=== PATIENT | female | born 1935 | race Caucasian/White ===

== ENCOUNTER 2018-09-22 16:46 | Inpatient (IN) ==
--- NOTE | 2018-09-22 17:13 | Emergency Department Note ---
ED Disposition Clinical Impression: Dehydration, Nausea vomiting and diarrhea, Contusion of knee with skin surface intact, Poor social situation, Acute renal insufficiency Disposition: Still a Patient Condition on Discharge: Fair Instructions: DI for Diarrhea and Traveler's Diarrhea -- Adult, DI for Diarrhea and Traveler's Diarrhea -- Child, DI for Nausea -- Adult, DI for Nausea -- Child Referrals: Domonique Burkett MD [Primary Care Provider] - - Critical Care Critical Care Time: No Attestation: On 09/22/18, the high probability of a clinically significant, sudden or life threatening deterioration of the following system(s) required my full and direct attention, intervention and personal management. The time I documented below is in addition to time spent performing reported procedures but includes the following listed in this critical care notation. Medical Decision Making - Nish Inquiry Pt receiving controlled substance: No Nish was queried for this patient: No Vital Signs: 09/22/18 16:57 09/22/18 18:16 Temperature 97.5 F L Temperature Source Oral Pulse Rate [Left Radial] 121 H 82 Respiratory Rate 26 H 18 Blood Pressure [Right Arm] 150/66 H 101/50 L Blood Pressure Mean [Right Arm] 94 67 Blood Pressure Source [Right Arm] Automatic Cuff Blood Pressure Position [Right Arm] Sitting Supine 02 Sat by Pulse Oximetry 97 97 Oxygen Delivery Method Room Air Room Air - Lab Data Lab Results 09/22/18 18:02: WBC 18.5 H, RBC 3.90 L, Hgb 11.6 L, Hct 37.6, MCV 96.4, MCH 29.8, MCHC 31.0 L, RDW 18.3 H, Plt Count 353, MPV 8.2, Neut % (Auto) 90.8 H, Lymph % (Auto) 6.3 L, Power % (Auto) 2.4, Eos % (Auto) 0.4, Baso % (Auto) 0.1, Neut # (Auto) 16.8 H, Lymph # (Auto) 1.2, Power # (Auto) 0.4, Eos # (Auto) 0.1, Baso # (Auto) 0.0, Total Counted 100, Neutrophils % (Manual) 84 H, Band Neutrophils % 3.0, Lymphocytes % (Manual) 13, Platelet Estimate Normal, Anisocytosis 1+ 09/22/18 18:02: Sodium 138, Potassium 5.1, Chloride 101, Carbon Dioxide 23, Anion Gap 19.1 H, BUN 35 H, Creatinine 3.00 H, Estimated Creat Clear 23, Estimated GFR 15 L*, Est GFR ( Amer) 18 L*, Glucose 250 H, Calcium 8.9, Total Bilirubin 0.8, AST 10 L, ALT 14, Alkaline Phosphatase 33 L, Total Protein 6.3 L, Albumin 2.8 L, Globulin 3.5 H, Albumin/Globulin Ratio 0.8 L 09/22/18 18:02: Magnesium 1.8 Result diagrams: 09/22/18 18:02 09/22/18 18:02 Orders (Tests/Meds): ED MEDICATIONS Discontinued Medications Generic Name Dose Route Start Last Admin Trade Name Freq PRN Reason Stop Dose Admin Ondansetron HCl 4 mg 09/22/18 17:48 09/22/18 18:09 Zofran 4mg/2ml Vial IV 09/22/18 17:49 4 mg ONCE ONE Administration ORDERS Category Date Time Status Acute abdomen XR series [XR acute abdomen series] Stat Exams 09/22/18 17:06 Taken Diarrhea 23 Panel, PCR Stat Lab 09/22/18 17:02 Ordered ECG Request by /Nse Stat Y 09/22/18 17:06 Ordered - Radiology Data #1 Image(s): Chest, Abdomen Image Reviewed: Yes I reviewed the patient's radiology image Preliminary Findings: Abnormal CXR: No acute Abdomen: No acute - ECG Data Tracing #1 Normal sinus rhythm 95/min baseline artifact nonspecific ST segment and T wave changes ECG initial impression date: 09/22/18 ECG initial impression time: 17:30 Medical Decision Narrative: The patient remained hemodynamically neurologically stable. Her abdomen series with no acute findings but her white count was 18 and her creatinine was 3.0 I spoke with the patient was agreeable for admission. I called Dr. Kulkarni who agreed to admit the patient on behalf of Dr. Mohr for IV fluid therapy with diarrhea panel is pending, the choice of antibiotic will be decided in the course of her hospital stay. Nausea/Vomiting/Diarrhea HPI - General Chief complaint: Nausea/Vomiting/Diarrhea Stated complaint: Vomiting, diarrhea, passing out Time Seen by Provider: 09/22/18 17:00 Mode of Arrival: Ambulatory Source of Information: Patient Limitations: No Limitations Description of Symptoms (Recalled from ER Triage Doc. by RN): to ed per pvt car with c/o nausea, vomiting, diarrhea starting lastnight pt states "passed out twice" pt denies any abd pain fever. cptdomonique smiley - History of Present Illness HPI Narrative: 83 years old white female with history of atrial fibrillation. Today at 3 AM she developed diarrhea x6 followed by vomiting x2 with inability to keep liquids down. The patient is on diuretics and she started feeling dehydrated. She de nies having fever chills hematemesis coffee-ground emesis melanotic stool or bleeding per rectum. She denies having abdominal pain. She denies having chest pain shortness of breath or palpitations. She has a house cat but no chicken or farm animals. MD complaint: nausea, vomiting, diarrhea Onset (ago): hour(s) (15 hours agp) Description of Vomiting: watery Description of Diarrhea: water Associated Abdominal Pain: No Relieving factors: none Exacerbating factors: eating Associated symptoms: nausea/vomiting - Related Data Allergies Allergy/AdvReac Type Severity Reaction Status Date / Time No Known Allergies Allergy Verified 09/22/18 17:03 [facility] History - Hepatitis A Screen Drug use history?: No High risk sexual behaviors?: No History of sexually transmitted infection?: No Currently employed?: No Childcare worker?: No Do you have indoor plumbing?: Yes Do you have electricity?: Yes Attestation statement:: This patient has been screened for Hepatitis A risk factors. I have reviewed the patient's past medical history: Yes - Social History Alcohol Intake: never Occupational Status: other ROS Obtained: Yes All systems reviewed & no additional complaints Physical Exam - General General appearance: alert, in no apparent distress, obese, other (Poor hygiene and poorly groomed.) - Head Head exam: atraumatic, normocephalic, normal inspection - Eye Eye exam: Present: normal appearance, PERRL, EOMI - ENT ENT exam: Present: normal exam, normal oropharynx, mucous membranes moist, TM's normal bilaterally, normal external ear exam - Neck Neck exam: Present: normal inspection, full ROM, trachea midline. Absent: tenderness, meningismus, lymphadenopathy - Chest Chest inspection: Present: normal inspection, symmetric chest wall rise. Absent: tenderness - Respiratory Respiratory exam: Present: normal lung sounds bilaterally. Absent: respiratory distress, wheezes - Cardiovascular Cardiovascular exam: Present: regular rate, normal rhythm. Absent: JVD - Abdominal Exam Abdominal exam: Present: soft, diminished bowel sounds. Absent: distention, tenderness, guarding, rebound, rigidity, Jimenez's sign, tenderness at McBurney's Point - External exam: Present: normal external exam - Extremities Exam Extremities exam: Present: normal inspection, full ROM, normal capillary refill. Absent: calf tenderness - Back Exam Back exam: Present: normal inspection. Absent: tenderness, CVA tenderness (R), CVA tenderness (L) - Neurological Exam Neurological exam: Present: alert, oriented X3, CN II-XII intact, motor sensory deficit, reflexes normal - Psychiatric Psychiatric exam: Present: normal affect, normal mood - Skin Skin exam: Present: warm, dry, intact, normal color, other (Multiple contusions involving the lower extremities and onychomycosis) - Lymphatic Lymphatic Findings: no adenopathy
[2018-09-22 18:22] LABS: Basophils % 0.1 % (0.1-2.0); Eosinophils # 0.1 K/mm3 (0.0-0.4); Eosinophils % 0.4 % (0.1-12.0); Hematocrit 37.6 % (37.0-47.0); Hemoglobin 11.6 g/dL (12.2-16.2); Lymphocytes # 1.2 K/mm3 (0.7-4.5); Lymphocytes % 6.3 % (10-50); Mean Corpuscular Volume 96.4 fl (81-99); Mean Platelet Volume 8.2 fl (7.4-10.4); Monocytes # 0.4 K/mm3 (0.1-1.0); Monocytes % 2.4 % (1.7-9.3); Neutrophils # 16.8 K/mm3 (1.8-7.8); Neutrophils % 90.8 % (37.0-80.0); Platelet Count 353 K/mm3 (142-424); Red Cell Distribution Width 18.3 % (11.5-17.5); White Blood Count 18.5 K/mm3 (4.8-10.8)
[2018-09-22 18:31] LABS: Albumin Level 2.8 gm/dL (3.4-5.0); Albumin/Globulin Ratio 0.8 (1.1-1.8); Anion Gap 19.1 mEq/L (5-15); Bilirubin,Total 0.8 mg/dL (0.2-1.0); Calcium 8.9 mg/dL (8.5-10.1); Globulin 3.5 gm/dl (1.3-3.2); Total Protein,Serum 6.3 gm/dL (6.4-8.2)
[2018-09-22 18:38] LABS: Anisocytosis 1+; Lymphocytes % 13 % (10-50); Neutrophils % 84 % (42-76); Total Cells Counted 100
[2018-09-22 20:03] LABS: Microscopic, Urine URINE MICROSCOPIC (MICROSCOPIC)
[2018-09-22 20:06] LABS: Appearance,Urine CLOUDY (Clear); Blood, Urine Negative (Negative); Color,Urine DK YELLOW (Yellow); Glucose,Urine (UA) Negative (Negative); Ketones,Urine TRACE (Negative); Leukocyte Esterase,Urine Negative (Negative); Protein,Urine 1+ (Negative); Specific Gravity, Urine >= 1.030 (1.005-1.030); Urobilinogen,Urine 0.2 EU/dl (0.2)
[2018-09-22 20:10] LABS: Amorphous Sediment,Urine 2+ /lpf; Bilirubin,Urine Negative (Negative); Mucus,Urine 2+ /lpf
--- NOTE | 2018-09-23 07:03 | History & Physical Report ---
*Admission Date: 09/22/18 *Chief complaint: Diarrhea *History of present illness: 83-year-old female presented to the emergency department yesterday afternoon with complaints of "feeling sick". Patient reports early Sunday morning she was awoken from sleep with onset of diarrhea. She estimates she had at least 6 large-volume watery bowel movements and associated episodes of vomiting. She is unaware of any fevers. She reports that she passed out at least twice during the early onset of this illness. She ultimately made her way to the emergency department in the afternoon. On evaluation in the ER the patient appeared dehydrated, had a elevated white blood cell count and had acute kidney injury on her BMP. Decision was made to admit the patient for IV fluids and antiemetics. Patient has not had any episodes of vomiting or diarrhea since admission. She recalls her last meal being some grape tomatoes and cheddar cheese on crackers. [facility] History I have reviewed the patient's past medical history: Yes Medical History: Reports:: Atrial Fibrillation, Hypertension *Have you ever received a pneumonia vaccine?: No *Have you received a flu vaccine this season?: No - *Social History Smoking Status: Never smoker Alcohol Intake: never *Occupational Status:: other *Travel in the last 8 weeks: None - Psychiatric History Expresses thoughts of harming self/others: None Suicide Plan Description: No Plan Family Hx:: No significant family history Review of Systems - Review of Systems Review of systems:: pertinent systems reviewed and negative unless documented below Meds Home Medications Medication Instructions Recorded Confirmed Type Aspirin [Aspirin EC 325mg Tab] 325 mg PO DAILY 09/23/18 09/23/18 History Chlorthalidone 25 mg PO DAILY 09/23/18 09/23/18 History Ferrous Sulfate [Ferrous Sulfate 325 mg PO DAILY 09/23/18 09/23/18 History 325mg Tablet] Verapamil HCl [Verapamil ER] 120 mg PO HS 09/23/18 09/23/18 History Verapamil HCl [Verapamil ER] 240 mg PO DAILY 09/23/18 09/23/18 History Allergies Allergy/AdvReac Type Severity Reaction Status Date / Time No Known Allergies Allergy Verified 09/22/18 17:03 Exam Vital signs and Labs for Last 24 Hours: Temp Pulse Resp BP Pulse Ox 98.8 F 81 20 94/54 L 99 09/23/18 03:53 09/23/18 03:53 09/23/18 03:53 09/23/18 03:53 09/23/18 03:53 Laboratory Results - last 24 hr 09/22/18 18:02: WBC 18.5 H, RBC 3.90 L, Hgb 11.6 L, Hct 37.6, MCV 96.4, MCH 29.8, MCHC 31.0 L, RDW 18.3 H, Plt Count 353, MPV 8.2, Neut % (Auto) 90.8 H, Lymph % (Auto) 6.3 L, [place] % (Auto) 2.4, Eos % (Auto) 0.4, Baso % (Auto) 0.1, Neut # (Auto) 16.8 H, Lymph # (Auto) 1.2, [place] # (Auto) 0.4, Eos # (Auto) 0.1, Baso # (Auto) 0.0, Total Counted 100, Neutrophils % (Manual) 84 H, Band Neutrophils % 3.0, Lymphocytes % (Manual) 13, Platelet Estimate Normal, Anisocytosis 1+ 09/22/18 18:02: Sodium 138, Potassium 5.1, Chloride 101, Carbon Dioxide 23, Anion Gap 19.1 H, BUN 35 H, Creatinine 3.00 H, Estimated Creat Clear 23, Estimated GFR 15 L*, Est GFR ( Amer) 18 L*, Glucose 250 H, Calcium 8.9, Total Bilirubin 0.8, AST 10 L, ALT 14, Alkaline Phosphatase 33 L, Total Protein 6.3 L, Albumin 2.8 L, Globulin 3.5 H, Albumin/Globulin Ratio 0.8 L 09/22/18 18:02: Magnesium 1.8 09/22/18 19:58: Urine Color Dk yellow, Urine Appearance Cloudy, Urine pH 5.0, Ur Specific [place] >= 1.030, Urine Protein 1+, Urine Glucose (UA) Negative, Urine Ketones Trace, Urine Blood Negative, Urine Nitrate Negative, Urine Bilirubin Negative, Urine Urobilinogen 0.2, Ur Leukocyte Esterase Negative, Urine WBC 3-5, Ur Squamous Epith Cells 5-10, Amorphous Sediment 2+, Hyaline Casts 5-10, Urine Mucus 2+ 09/22/18 20:09: Lactate 2.3 H 09/22/18 23:50: Lactate 0.7 I & O for Last 24 hours: Intake & Output 09/20/18 09/21/18 09/22/18 09/23/18 11:59 11:59 11:59 11:59 Intake Total 1934 Balance 1934 Weight 199 lb 7 oz - Constitutional no acute distress - *Routine HEENT Exam Head: Present: normocephalic Eye: Present: EOMI, PERRL ENT: Present: mucous membranes moist - *Routine Neck Exam Present: supple - *Routine Respiratory Exam Present: CTA bilaterally - *Routine Cardiovascular Exam Present: murmur, irregularly irregular - *Routine Abdominal Exam Present: soft, normoactive bowel sounds. Absent: tenderness, distended, rebound - *Routine Extremities Exam Present: full ROM - *Routine Neurological Exam Present: alert, oriented X3, CN II-XII intact. Absent: sensory deficit, motor deficit Assessment and Plan (1) Acute kidney injury Current visit: Yes Status: Acute Category: Medical Code(s): N17.9 - Acute kidney failure, unspecified (2) Gastroenteritis Current visit: Yes Status: Acute Category: Medical Code(s): K52.9 - Noninfective gastroenteritis and colitis, unspecified (3) Dehydration Current visit: Yes Status: Acute Category: Medical Code(s): E86.0 - Dehydration (4) Atrial fibrillation Current visit: Yes Status: Acute Category: Medical Code(s): I48.91 - Unspecified atrial fibrillation - Assessment and plan all Dx Assessment and Plan for all problems:: 1. Continue IV fluids 2. Clear liquid diet and advance as tolerated 3. Hold chlorthalidone 4. Await morning BMP to reassess renal function
--- NOTE | 2018-09-23 07:31 | Pharmacy Consult Notes ---
[facility] Pharmacy VTE Monitoring - Patient Demographics Admission date: 09/22/18 Report Date: 09/23/18 Time: 07:31 Allergies/Adverse Reactions: Patient Allergies No Known Allergies Allergy (Verified 09/22/18 17:03) Height: 1.57 m Weight: 90.463 kg Patient Problems: Current Active Problems (Updated 09/23/18 @ 07:04 by Houston Mohr MD) Dehydration (Acute) Nausea vomiting and diarrhea (Acute) Contusion of knee with skin surface intact (Acute) Poor social situation (Acute) Acute renal insufficiency (Acute) Acute kidney injury (Acute) Gastroenteritis (Acute) Atrial fibrillation (Acute) - VTE Risk Labs: VTE Related Lab Results Hgb 11.6 g/dL (12.2-16.2) L 09/22/18 18:02 Hct 37.6 % (37.0-47.0) 09/22/18 18:02 Plt Count 353 K/mm3 (142-424) 09/22/18 18:02 BUN 35 mg/dL (7-18) H 09/22/18 18:02 Creatinine 3.00 mg/dL (0.55-1.02) H 09/22/18 18:02 Estimated Creat Clear 23 mL/min (50-200) 09/22/18 18:02 Was VTE Risk Assessment Performed: Yes VTE Risk Level: Very Low Risk - Prophylaxis VTE Prophylaxis Ordered?: Yes Types of VTE Prophylaxis: TEDS Knee High Location of Applied Device: Bilateral Lower Extremeties - VTE Diagnosis Confirmed Treatment or plan recommended: Continue Current Treatment
[2018-09-23 07:50] LABS: Basophils % 0.1 % (0.1-2.0); Eosinophils % 0.1 % (0.1-12.0); Hematocrit 31.5 % (37.0-47.0); Lymphocytes # 1.7 K/mm3 (0.7-4.5); Lymphocytes % 13.1 % (10-50); Mean Corpuscular HGB Conc 31.1 g/dL (31.8-35.4); Mean Platelet Volume 8.1 fl (7.4-10.4); Monocytes # 0.7 K/mm3 (0.1-1.0); Monocytes % 5.2 % (1.7-9.3); Neutrophils # 10.7 K/mm3 (1.8-7.8); Neutrophils % 81.5 % (37.0-80.0); Platelet Count 252 K/mm3 (142-424); Red Blood Count 3.21 M/mm3 (4.20-5.40); Red Cell Distribution Width 18.2 % (11.5-17.5); White Blood Count 13.2 K/mm3 (4.8-10.8)
[2018-09-23 08:10] LABS: Anion Gap 13.2 mEq/L (5-15)
[2018-09-23 08:33] LABS: Calcium 7.8 mg/dL (8.5-10.1)
[2018-09-23 09:32] LABS: Hemoglobin 9.8 g/dL (12.2-16.2)
--- NOTE | 2018-09-23 13:30 | Pharmacy Consult Notes ---
- Pharmacy Consult Date: 09/23/18 Time: 13:24 Referring provider: FRANK Reason for Consult:: VANCOMYCIN THERAPY FOR PRELIMINARY POSITIVE BLOOD CULTURES Allergies and ADEs:: Allergies Allergy/AdvReac Type Severity Reaction Status Date / Time No Known Allergies Allergy Verified 09/22/18 17:03 Home Medications:: Home Medications Medication Instructions Recorded Confirmed Type Aspirin [Aspirin EC 325mg Tab] 325 mg PO DAILY 09/23/18 09/23/18 History Chlorthalidone 25 mg PO DAILY 09/23/18 09/23/18 History Ferrous Sulfate [Ferrous Sulfate 325 mg PO DAILY 09/23/18 09/23/18 History 325mg Tablet] Verapamil HCl [Verapamil ER] 120 mg PO HS 09/23/18 09/23/18 History Verapamil HCl [Verapamil ER] 240 mg PO DAILY 09/23/18 09/23/18 History Height: 1.57 m Weight: 90.463 kg Laboratory Results:: Laboratory Results - last 24 hr 09/22/18 18:02: WBC 18.5 H, RBC 3.90 L, Hgb 11.6 L, Hct 37.6, MCV 96.4, MCH 29.8, MCHC 31.0 L, RDW 18.3 H, Plt Count 353, MPV 8.2, Neut % (Auto) 90.8 H, Lymph % (Auto) 6.3 L, [place] % (Auto) 2.4, Eos % (Auto) 0.4, Baso % (Auto) 0.1, Neut # (Auto) 16.8 H, Lymph # (Auto) 1.2, [place] # (Auto) 0.4, Eos # (Auto) 0.1, Baso # (Auto) 0.0, Total Counted 100, Neutrophils % (Manual) 84 H, Band Neutrophils % 3.0, Lymphocytes % (Manual) 13, Platelet Estimate Normal, Anisocytosis 1+ 09/22/18 18:02: Sodium 138, Potassium 5.1, Chloride 101, Carbon Dioxide 23, Anion Gap 19.1 H, BUN 35 H, Creatinine 3.00 H, Estimated Creat Clear 23, Estimated GFR 15 L*, Est GFR ( Amer) 18 L*, Glucose 250 H, Calcium 8.9, Total Bilirubin 0.8, AST 10 L, ALT 14, Alkaline Phosphatase 33 L, Total Protein 6.3 L, Albumin 2.8 L, Globulin 3.5 H, Albumin/Globulin Ratio 0.8 L 09/22/18 18:02: Magnesium 1.8 09/22/18 19:58: Urine Color Dk yellow, Urine Appearance Cloudy, Urine pH 5.0, Ur Specific [place] >= 1.030, Urine Protein 1+, Urine Glucose (UA) Negative, Urine Ketones Trace, Urine Blood Negative, Urine Nitrate Negative, Urine Bilirubin Negative, Urine Urobilinogen 0.2, Ur Leukocyte Esterase Negative, Urine WBC 3-5, Ur Squamous Epith Cells 5-10, Amorphous Sediment 2+, Hyaline Casts 5-10, Urine Mucus 2+ 09/22/18 20:09: Lactate 2.3 H 09/22/18 23:50: Lactate 0.7 09/23/18 07:35: WBC 13.2 H D, RBC 3.21 L, Hgb 9.8 L D, Hct 31.5 L, MCV 98.0, MCH 30.5, MCHC 31.1 L, RDW 18.2 H, Plt Count 252 D, MPV 8.1, Neut % (Auto) 81.5 H, Lymph % (Auto) 13.1, [place] % (Auto) 5.2, Eos % (Auto) 0.1, Baso % (Auto) 0.1, Neut # (Auto) 10.7 H, Lymph # (Auto) 1.7, [place] # (Auto) 0.7, Eos # (Auto) 0.0, Baso # (Auto) 0.0 09/23/18 07:35: Sodium 140, Potassium 4.2, Chloride 104, Carbon Dioxide 27, Anion Gap 13.2, BUN 43 H, Creatinine 2.66 H, Estimated Creat Clear 22, Estimated GFR 17 L*, Est GFR ( Amer) 21 L, Glucose 126 H D, Calcium 7.8 L D, Magnesium 1.8 Medical History: Reports:: Atrial Fibrillation, Hypertension Assessment and Plan (1) Acute kidney injury Current visit: Yes Status: Acute Category: Medical Code(s): N17.9 - Acute kidney failure, unspecified (2) Gastroenteritis Current visit: Yes Status: Acute Category: Medical Code(s): K52.9 - Noninfective gastroenteritis and colitis, unspecified (3) Dehydration Current visit: Yes Status: Acute Category: Medical Code(s): E86.0 - Dehydration (4) Atrial fibrillation Current visit: Yes Status: Acute Category: Medical Code(s): I48.91 - Unspecified atrial fibrillation - Assessment and plan all Dx Assessment and Plan for all problems:: PHARMACY CONSULTED FOR VANCOMYCIN THERAPY RE: PRELIMINARY BLOOD CULTURES SHOWING GRAM POSITIVE COCCI IN CLUSTERS WITH PCR INDICATING STAPH AUREUS. WILL START PATIENT ON VANCOMYCIN 1750MG IVPB ONCE. DUE TO PATIENT POOR RENAL FUNCTION, WILL GIVE THIS ASA ONCE DOSE AND CHECK VANCOMYCIN TROUGH LEVEL IN 48 HOURS ON SUNDAY TO SEE IF DRUG HAS BEEN CLEARED ENOUGH TO WARRANT RE-DOSING. HAVE DISCUSSED THIS PLAN WITH DR. HUA. PHARMACY WILL FOLLOW PATIENT DAILY.
[2018-09-24 07:00] LABS: Basophils % 0.2 % (0.1-2.0); Eosinophils % 0.3 % (0.1-12.0); Lymphocytes % 21.6 % (10-50); Mean Corpuscular HGB Conc 30.3 g/dL (31.8-35.4); Mean Platelet Volume 7.4 fl (7.4-10.4); Monocytes # 0.5 K/mm3 (0.1-1.0); Monocytes % 5.5 % (1.7-9.3); Neutrophils # 6.7 K/mm3 (1.8-7.8); Neutrophils % 72.5 % (37.0-80.0); Platelet Count 213 K/mm3 (142-424); Red Blood Count 2.32 M/mm3 (4.20-5.40); Red Cell Distribution Width 18.2 % (11.5-17.5); White Blood Count 9.2 K/mm3 (4.8-10.8)
[2018-09-24 07:07] LABS: Anion Gap 9.4 mEq/L (5-15); Calcium 7.3 mg/dL (8.5-10.1)
--- NOTE | 2018-09-24 07:09 | Progress Note ---
Internal Medicine - PN: Subj *Date: 09/24/18 *Time: 07:06 Interval history: Patient reports no changes since yesterday. She did have 2 bowel movements which were described as dark and tarry. Stool for occult blood is been ordered. Patient admits she took Pepto-Bismol at home on the day of admission because of her diarrhea. Patient has been out of bed to urinate on the bedside commode. Patient had a shower. She has remained afebrile. Blood cultures are growing staph species Exam Vital signs and Labs for Last 24 Hours: Temp Pulse Resp BP Pulse Ox 97.9 F 84 18 128/50 L 94 L 09/24/18 03:32 09/24/18 03:32 09/24/18 03:32 09/24/18 03:32 09/24/18 03:32 Laboratory Results - last 24 hr 09/23/18 07:35: WBC 13.2 H D, RBC 3.21 L, Hgb 9.8 L D, Hct 31.5 L, MCV 98.0, MCH 30.5, MCHC 31.1 L, RDW 18.2 H, Plt Count 252 D, MPV 8.1, Neut % (Auto) 81.5 H, Lymph % (Auto) 13.1, [place] % (Auto) 5.2, Eos % (Auto) 0.1, Baso % (Auto) 0.1, Neut # (Auto) 10.7 H, Lymph # (Auto) 1.7, [place] # (Auto) 0.7, Eos # (Auto) 0.0, Baso # (Auto) 0.0 09/23/18 07:35: Sodium 140, Potassium 4.2, Chloride 104, Carbon Dioxide 27, Anion Gap 13.2, BUN 43 H, Creatinine 2.66 H, Estimated Creat Clear 22, Estimated GFR 17 L*, Est GFR ( Amer) 21 L, Glucose 126 H D, Calcium 7.8 L D, Magnesium 1.8 09/23/18 18:40: Stl Aeromonas (PCR) Not detected, Stl C. cayetanensis PCR Not detected, Stool Rotavirus (PCR) Not detected, Stl Adenov F 40/41 PCR Not detected, Stool Astrovirus (PCR) Not detected, Stool Campylobacter PCR Not detected, Stl C.difficile Tox PCR Not detected, Stool Cryptosporidium PCR Not detected, Stl E.coli Shiga Tox PCR Not detected, Stool E coli O157 PCR Not detected, Stl Enterotoxigenic E PCR Not detected, Stool EPEC (PCR) Not detected, Stool EAEC (PCR) Not detected, Stl E. histolytica PCR Not detected, Stool Giardia Lamblia PCR Not detected, Stool Salmonella PCR Not detected, Stool Sapovirus (PCR) Not detected, Stl P. shigelloides PCR Not detected, Stl Shigella/EIEC PCR Not detected, St Y.enterocolitica PCR Not detected, Stool Vibrio (PCR) Not detected, Stl Vibrio cholerae PCR Not detected, Stl Norovirus GI/GII PCR Not detected I & O for Last 24 hours: Intake & Output 09/21/18 09/22/18 09/23/18 09/24/18 11:59 11:59 11:59 11:59 Intake Total 2295 / 2295 2953 / 2953 Output Total 1100 / 1100 Balance 2295 / 2295 1853 / 1853 Weight 199 lb 6.988 oz 204 lb Microbiology Reports for the Last 24 Hours: Microbiology 09/22/18 20:03 Blood Blood Culture - Preliminary 09/22/18 20:09 Blood Blood Culture - Preliminary Narrative: Patient appears comfortable. Oropharynx is moist. Neck is without carotid bruits. Lungs are clear. Heart has an irregular rate and rhythm. Abdomen is soft and nontender. Skin exam reveals a skin tear on the left lower leg but there are no signs of cellulitis Assessment and Plan (1) Staphylococcus aureus bacteremia with sepsis Current visit: Yes Status: Acute Category: Medical Code(s): A41.01 - Sepsis due to Methicillin susceptible Staphylococcus aureus Patient has been ordered vancomycin. (2) Acute kidney injury Current visit: Yes Status: Acute Category: Medical Code(s): N17.9 - Acute kidney failure, unspecified Await [facility] this morning. Monitor daily (3) Gastroenteritis Current visit: Yes Status: Resolved Category: Medical Code(s): K52.9 - Noninfective gastroenteritis and colitis, unspecified (4) Dehydration Current visit: Yes Status: Resolved Category: Medical Code(s): E86.0 - Dehydration (5) Atrial fibrillation Current visit: Yes Status: Chronic Qualifiers: Atrial fibrillation type: chronic Qualified Code(s): I48.2 - Chronic atrial fibrillation Category: Medical Code(s): I48.91 - Unspecified atrial fibrillation Patient takes aspirin a day as an anticoagulant due to history of falls. (6) Anemia Current visit: Yes Status: Acute Category: Medical Code(s): D64.9 - Anemia, unspecified Anemia is dilutional versus upper GI bleed. Check stool for occult blood. If positive will consult surgery for EGD. Patient will be given IV Protonix (7) Fall at home Current visit: Yes Status: Acute Category: Medical Code(s): W19.XXXA - Unspecified fall, initial encounter; Y92.009 - Unspecified place in unspecified non-institutional (private) residence as the place of occurrence of the external cause Care management was consulted and discussed home health with the patient which she declined. Increase activity level today
[2018-09-24 07:29] LABS: Hematocrit 22.7 % (37.0-47.0)
[2018-09-24 07:31] LABS: Hemoglobin 6.9 g/dL (12.2-16.2)
--- NOTE | 2018-09-24 09:52 | Consult Report ---
*Admission Date: 09/22/18 *Reason for consult:: GI bleed *History of present illness: Patient is an 83-year-old white female. She had presented to the emergency department a couple of days ago with generally feeling ill with nausea and multiple episodes of watery diarrhea. She had findings of dehydration and acute renal insufficiency. She was admitted for inpatient management. Patient was noted this morning to have a precipitous drop in hemoglobin and had developed some passage of maroon bloody stool. Surgical consultation was obtained. Patient denies any history of prior ulcer disease. She does take full-strength aspirin daily. She states that she had a prior colonoscopy about 6 years ago which revealed diverticulosis. Review of Systems - Review of Systems Review of systems:: pertinent systems reviewed and negative unless documented below [facility] History Medical History: Reports:: Atrial Fibrillation, Hypertension *Have you ever received a pneumonia vaccine?: No *Have you received a flu vaccine this season?: No - *Social History Smoking Status: Never smoker Alcohol Intake: never *Occupational Status:: other *Travel in the last 8 weeks: None - Psychiatric History Expresses thoughts of harming self/others: None Suicide Plan Description: No Plan Family Hx:: No significant family history Meds Home Medications Medication Instructions Recorded Confirmed Type Aspirin [Aspirin EC 325mg Tab] 325 mg PO DAILY 09/23/18 09/23/18 History Chlorthalidone 25 mg PO DAILY 09/23/18 09/23/18 History Ferrous Sulfate [Ferrous Sulfate 325 mg PO DAILY 09/23/18 09/23/18 History 325mg Tablet] Verapamil HCl [Verapamil ER] 120 mg PO HS 09/23/18 09/23/18 History Verapamil HCl [Verapamil ER] 240 mg PO DAILY 09/23/18 09/23/18 History Allergies Allergy/AdvReac Type Severity Reaction Status Date / Time No Known Allergies Allergy Verified 09/22/18 17:03 Exam Vital signs and Labs for Last 24 Hours: Temp Pulse Resp BP Pulse Ox 98.2 F 108 H 18 118/47 L 95 09/24/18 07:36 09/24/18 07:36 09/24/18 07:36 09/24/18 07:36 09/24/18 07:36 Laboratory Results - last 24 hr 09/23/18 18:40: Stl Aeromonas (PCR) Not detected, Stl C. cayetanensis PCR Not detected, Stool Rotavirus (PCR) Not detected, Stl Adenov F 40/41 PCR Not detected, Stool Astrovirus (PCR) Not detected, Stool Campylobacter PCR Not detected, Stl C.difficile Tox PCR Not detected, Stool Cryptosporidium PCR Not detected, Stl E.coli Shiga Tox PCR Not detected, Stool E coli O157 PCR Not det ected, Stl Enterotoxigenic E PCR Not detected, Stool EPEC (PCR) Not detected, Stool EAEC (PCR) Not detected, Stl E. histolytica PCR Not detected, Stool Giardia Lamblia PCR Not detected, Stool Salmonella PCR Not detected, Stool Sapovirus (PCR) Not detected, Stl P. shigelloides PCR Not detected, Stl S higella/EIEC PCR Not detected, St Y.enterocolitica PCR Not detected, Stool Vibrio (PCR) Not detected, Stl Vibrio cholerae PCR Not detected, Stl Norovirus GI/GII PCR Not detected 09/24/18 05:57: Sodium 141, Potassium 4.4, Chloride 109 H, Carbon Dioxide 27, Anion Gap 9.4, BUN 36 H, Creatinine 1.39 H D, Estimated Creat Clear 43, Estimated GFR 36 L, Est GFR ( Amer) 44 L D, Glucose 119 H, Calcium 7.3 L 09/24/18 05:57: WBC 9.2 D, RBC 2.32 L D, Hgb 6.9 L* D, Hct 22.7 L*, MCV 98.0, MCH 29.7, MCHC 30.3 L, RDW 18.2 H, Plt Count 213, MPV 7.4, Neut % (Auto) 72.5, Lymph % (Auto) 21.6, [place] % (Auto) 5.5, Eos % (Auto) 0.3, Baso % (Auto) 0.2, Neut # (Auto) 6.7, Lymph # (Auto) 2.0, [place] # (Auto) 0.5, Eos # (Auto) 0.0, Baso # (Auto) 0.0 09/24/18 08:20: Blood Type A Positive, Antibody Screen Negative, Crossmatch (AHG) See Detail I & O for Last 24 hours: Intake & Output 09/21/18 09/22/18 09/23/18 09/24/18 11:59 11:59 11:59 11:59 Intake Total 2295 / 2295 3193 / 3193 Output Total 1100 / 1100 Balance 2295 / 2295 2093 / 2093 Weight 199 lb 6.988 oz 204 lb Microbiology Reports for the Last 24 Hours: Microbiology 09/22/18 20:03 Blood Blood Culture - Preliminary 09/22/18 20:09 Blood Blood Culture - Preliminary - *Routine HEENT Exam Head: Present: normocephalic Eye: Present: EOMI, PERRL ENT: Present: mucous membranes moist - *Routine Neck Exam Present: supple. Absent: lymphadenopathy - *Routine Respiratory Exam Present: CTA bilaterally - *Routine Cardiovascular Exam Present: Normal S1, Normal S2 - *Routine Abdominal Exam Present: soft, normoactive bowel sounds. Absent: tenderness - *Routine Extremities Exam Absent: cyanosis, clubbing, edema - *Routine Skin Exam Present: pallor, warm. Absent: rash - *Routine Neurological Exam Present: alert, oriented X3 - Detailed Eye Exam Eyelids: Left normal inspection Results - Labs 09/24/18 05:57 09/24/18 05:57 Laboratory Results - last 24 hr 09/23/18 18:40: Stl Aeromonas (PCR) Not detected, Stl C. cayetanensis PCR Not detected, Stool Rotavirus (PCR) Not detected, Stl Adenov F 40/41 PCR Not detected, Stool Astrovirus (PCR) Not detected, Stool Campylobacter PCR Not detected, Stl C.difficile Tox PCR Not detected, Stool Cryptosporidium PCR Not detected, Stl E.coli Shiga Tox PCR Not detected, Stool E coli O157 PCR Not detected, Stl Enterotoxigenic E PCR Not detected, Stool EPEC (PCR) Not detected, Stool EAEC (PCR) Not detected, Stl E. histolytica PCR Not detected, Stool Giardia Lamblia PCR Not detected, Stool Salmonella PCR Not detected, Stool Sapovirus (PCR) Not detected, Stl P. shigelloides PCR Not detected, Stl Shigella/EIEC PCR Not detected, St Y.enterocolitica PCR Not detected, Stool Vibrio (PCR) Not detected, Stl Vibrio cholerae PCR Not detected, Stl Norovirus GI/GII PCR Not detected 09/24/18 05:57: Sodium 141, Potassium 4.4, Chloride 109 H, Carbon Dioxide 27, Anion Gap 9.4, BUN 36 H, Creatinine 1.39 H D, Estimated Creat Clear 43, Estimated GFR 36 L, Est GFR ( Amer) 44 L D, Glucose 119 H, Calcium 7.3 L 09/24/18 05:57: WBC 9.2 D, RBC 2.32 L D, Hgb 6.9 L* D, Hct 22.7 L*, MCV 98.0, MCH 29.7, MCHC 30.3 L, RDW 18.2 H, Plt Count 213, MPV 7.4, Neut % (Auto) 72.5, Lymph % (Auto) 21.6, [place] % (Auto) 5.5, Eos % (Auto) 0.3, Baso % (Auto) 0.2, Neut # (Auto) 6.7, Lymph # (Auto) 2.0, [place] # (Auto) 0.5, Eos # (Auto) 0.0, Baso # (Auto) 0.0 09/24/18 08:20: Blood Type A Positive, Antibody Screen Negative, Crossmatch (AHG) See Detail Assessment and Plan (1) Staphylococcus aureus bacteremia with sepsis Current visit: Yes Status: Acute Category: Medical Code(s): A41.01 - Sepsis due to Methicillin susceptible Staphylococcus aureus (2) Acute kidney injury Current visit: Yes Status: Acute Category: Medical Code(s): N17.9 - Acute kidney failure, unspecified (3) Gastroenteritis Current visit: Yes Status: Resolved Category: Medical Code(s): K52.9 - Noninfective gastroenteritis and colitis, unspecified (4) Dehydration Current visit: Yes Status: Resolved Category: Medical Code(s): E86.0 - Dehydration (5) Atrial fibrillation Current visit: Yes Status: Chronic Qualifiers: Atrial fibrillation type: chronic Qualified Code(s): I48.2 - Chronic atrial fibrillation Category: Medical Code(s): I48.91 - Unspecified atrial fibrillation (6) Anemia Current visit: Yes Status: Acute Category: Medical Code(s): D64.9 - Anemia, unspecified (7) Fall at home Current visit: Yes Status: Acute Category: Medical Code(s): W19.XXXA - Unspecified fall, initial encounter; Y92.009 - Unspecified place in unspecified non-institutional (private) residence as the place of occurrence of the external cause - Assessment and plan all Dx Assessment and Plan for all problems:: Patient has obvious GI blood loss. Plan initially for upper endoscopy to evaluate upper GI source. Patient did eat limited breakfast. Plan to proceed with upper endoscopy when feasible from anesthetic sedation standpoint.
--- NOTE | 2018-09-24 10:05 | Progress Note ---
[facility] Anesthesia Checklist - Patient Identification Patient Identification: Arm Band, Verbal (Name & ) - Structural Data Admitted From: Home Planned Operative Procedure/s: Colonoscopy Consent for Planned Operative Procedure(s) Verified: Yes Verified Documents: Surgical Consent, History and Physical - NPO Status Verified Time NPO: 00:00 - Chart Verification Results Verified: CBC, BMP - Additional verifications Anesthesia Reactions: No - Airway Assessment C-Spine Mobility Assessed: Yes TMJ Mobility Assessed: Yes Dentition: Poor Dentition - Neurological Assessment Level of Consciousness: Awake, Alert, Appropriate, Follows Commands [facility] History Medical History: Reports:: Atrial Fibrillation, Hypertension *Have you ever received a pneumonia vaccine?: No *Have you received a flu vaccine this season?: No - *Social History Smoking Status: Never smoker Alcohol Intake: never *Occupational Status:: other *Travel in the last 8 weeks: None - Psychiatric History Expresses thoughts of harming self/others: None Suicide Plan Description: No Plan Family Hx:: No significant family history
--- NOTE | 2018-09-24 11:50 | Procedure Note ---
- Procedure: Date: 09/24/18 Procedure Performed:: Esophagogastroduodenoscopy Indications:: Patient is an 83-year-old white female. She had presented to the emergency department a couple of days ago with generally feeling ill with nausea and multiple episodes of watery diarrhea. She had findings of dehydration and acute renal insufficiency. She was admitted for inpatient management. Patient was noted this morning to have a precipitous drop in hemoglobin and had developed some passage of maroon bloody stool. Surgical consultation was obtained. Patient denies any history of prior ulcer disease. She does take full-strength aspirin daily. She states that she had a prior colonoscopy about 6 years ago which revealed diverticulosis. Review of the record reveals that she had prior presumed diverticular bleed in 2007 at which time she underwent flexible sigmoidoscopy by Dr. Landon Yoder. This was followed up with a full colonoscopy at that time which revealed significant diverticulosis and she had a 4 mm tubular adenoma in the ascending colon. Plan was made to proceed with up per endoscopy initially to evaluate for potential upper GI source of bleeding Performing Provider:: Jovany Katz MD Referring Provider:: Houston Mohr MD Sedation:: Propofol Procedure:: Patient was taken to endoscopy procedure room. She was positioned in a somewhat lateral position. Adequate intravenous sedation was achieved. Olympus endoscope was inserted via the oropharynx and advanced to the esophagus. Esophagus overall appeared normal. Stomach was cannulated and insufflated. There is some minor patchy nonerosive gastritis. Retroflexion revealed small to moderate hiatal hernia. There is no evidence of any recent bleeding within the gastric lumen. Pylorus was widely patent and the endoscope was advanced into the distal duodenum. This all appeared unremarkable. Stomach was desufflated and the scope was withdrawn. Findings:: Small to moderate sliding hiatal hernia Patchy nonerosive gastritis No source on upper endoscopy which would be indicative of gastrointestinal source of blood loss Recommendations:: Patient may very well have lower GI bleeding such as diverticular bleed based on the symptoms and history. I will tentatively plan for bowel preparation today for colonoscopy tomorrow. Complications:: None immediately apparent Estimated blood obtained (mL): 0
[2018-09-24 17:33] LABS: Hematocrit 30.4 % (37.0-47.0)
[2018-09-24 17:34] LABS: Hemoglobin 9.6 g/dL (12.2-16.2)
--- NOTE | 2018-09-24 19:28 | Cardiology Report ---
PROCEDURE: 2-D M-mode and color Doppler study INDICATIONS FOR THE TEST: Chest pain COPD Heart Murmur Tobacco Smoking Palpitations Fatigue Syncope Edema Hypertension+Diabetes Mellitus Rheumatic Fever SOB KAMARA Obesity Hyperlipidemia Family History HD Additional History A-FIB CHRONIC, GI BLEED, PATIENT INFORMATION HEIGHT: 62 WEIGHT:204 GENDER: Female B/P:101/50 2-D/M-MODE INTERPRETATION: 2-D MEASUREMENTS OBSERVED VALUES IN CMS Right Ventricular Dimension (RVDd) 2.8 Interventricular Septum (Thickness)(IVsd) 1.5 Left Ventricular Internal Dimensions(LVIDd) 4.1 Left Ventricular Posterior Wall (Thickness)(LVPWd) 1.2 Aortic Root 2.5 Aortic Cusp Separation 2.1 Left Atrial Dimensions (LAD) 3.1 2D 1. Technically difficult study because of the patient's factor and poor acoustic windows 2. Left atrium is mildly enlarged, left ventricle is normal size, mild concentric left ventricular hypertrophy, visually estimated ejection fraction 55% with no regional wall motion abnormality. 3. The right atrium and right ventricle are mildly enlarged with normal contractility. 4. The aortic valve is minimally thickened and fibrosed. 5. The mitral and tricuspid valve leaflets are minimally thickened. 6. The pulmonic valve is poorly visualized. 7. No significant pericardial effusion noted. DOPPLER INTERROGATION: Doppler interrogation of the aortic, mitral and tricuspid valvular presence of mild mitral and tricuspid regurgitation, tricuspid regurgitation jet velocity is inadequate for calculation of the right ventricular systolic pressure, diastolic parameters are inconclusive. Inferior vena cava is not well visualized CONCLUSION: 1. Technically difficult study because of the patient's factor and poor acoustic windows 2. Mildly enlarged left atrium, normal left ventricular size, visually estimated ejection fraction approximately 55% with no regional wall motion abnormality. Diastolic parameters are inconclusive. 3. Mildly enlarged right ventricle with normal contractility. 3. Mild mitral and tricuspid regurgitation 4. No significant pericardial effusion noted.
[2018-09-24 22:17] LABS: Hematocrit 28.5 % (37.0-47.0); Hemoglobin 8.7 g/dL (12.2-16.2)
[2018-09-25 06:06] LABS: Basophils % 0.3 % (0.1-2.0); Eosinophils % 0.3 % (0.1-12.0); Hematocrit 26.3 % (37.0-47.0); Hemoglobin 8.3 g/dL (12.2-16.2); Lymphocytes # 1.6 K/mm3 (0.7-4.5); Lymphocytes % 22.2 % (10-50); Mean Corpuscular HGB Conc 31.4 g/dL (31.8-35.4); Mean Platelet Volume 8.7 fl (7.4-10.4); Monocytes # 0.5 K/mm3 (0.1-1.0); Monocytes % 6.3 % (1.7-9.3); Neutrophils # 5.1 K/mm3 (1.8-7.8); Neutrophils % 70.8 % (37.0-80.0); Platelet Count 180 K/mm3 (142-424); Red Blood Count 2.77 M/mm3 (4.20-5.40); Red Cell Distribution Width 18.3 % (11.5-17.5); White Blood Count 7.3 K/mm3 (4.8-10.8)
--- NOTE | 2018-09-25 06:59 | Progress Note ---
Internal Medicine - PN: Subj *Date: 09/25/18 *Time: 06:57 Interval history: Patient has no complaints this morning. Nursing staff reports patient had multiple bowel movements due to her bowel prep but there was very little evidence of blood seen on examination of stool. Exam Vital signs and Labs for Last 24 Hours: Temp Pulse Resp BP Pulse Ox 97.6 F 61 19 139/51 L 93 L 09/25/18 04:00 09/25/18 04:00 09/25/18 04:00 09/25/18 04:00 09/25/18 04:00 Laboratory Results - last 24 hr 09/22/18 19:58: Urine Color Dk yellow, Urine Appearance Cloudy, Urine pH 5.0, Ur Specific Plessis >= 1.030, Urine Protein 1+, Urine Glucose (UA) Negative, Urine Ketones Trace, Urine Blood Negative, Urine Nitrate Negative, Urine Bilirubin Negative, Urine Urobilinogen 0.2, Ur Leukocyte Esterase Negative, Urine WBC 3-5, Ur Squamous Epith Cells 5-10, Amorphous Sediment 2+, Hyaline Casts 5-10, Urine Mucus 2+ 09/24/18 05:57: Sodium 141, Potassium 4.4, Chloride 109 H, Carbon Dioxide 27, Anion Gap 9.4, BUN 36 H, Creatinine 1.39 H D, Estimated Creat Clear 43, Estimated GFR 36 L, Est GFR ( Amer) 44 L D, Glucose 119 H, Calcium 7.3 L 09/24/18 05:57: WBC 9.2 D, RBC 2.32 L D, Hgb 6.9 L* D, Hct 22.7 L*, MCV 98.0, MCH 29.7, MCHC 30.3 L, RDW 18.2 H, Plt Count 213, MPV 7.4, Neut % (Auto) 72.5, Lymph % (Auto) 21.6, [place] % (Auto) 5.5, Eos % (Auto) 0.3, Baso % (Auto) 0.2, Neut # (Auto) 6.7, Lymph # (Auto) 2.0, [place] # (Auto) 0.5, Eos # (Auto) 0.0, Baso # (Auto) 0.0 09/24/18 08:20: Blood Type A Positive, Antibody Screen Negative, Crossmatch (AHG) See Detail 09/24/18 09:10: Blood Type Confirm A Positive 09/24/18 17:10: Hgb 9.6 L D, Hct 30.4 L 09/24/18 22:10: Hgb 8.7 L, Hct 28.5 L 09/25/18 05:50: WBC 7.3, RBC 2.77 L, Hgb 8.3 L, Hct 26.3 L, MCV 95.0, MCH 29.8, MCHC 31.4 L, RDW 18.3 H, Plt Count 180, MPV 8.7, Neut % (Auto) 70.8, Lymph % (Auto) 22.2, [place] % (Auto) 6.3, Eos % (Auto) 0.3, Baso % (Auto) 0.3, Neut # (Auto) 5.1, Lymph # (Auto) 1.6, [place] # (Auto) 0.5, Eos # (Auto) 0.0, Baso # (Auto) 0.0 I & O for Last 24 hours: Intake & Output 09/22/18 09/23/18 09/24/18 09/25/18 11:59 11:59 11:59 11:59 Intake Total 2295 / 2295 3193 / 3193 650 / 650 Output Total 1400 / 1400 350 / 350 Balance 2295 / 2295 1793 / 1793 300 / 300 Weight 199 lb 6.988 oz 204 lb 209 lb 9 oz Microbiology Reports for the Last 24 Hours: Microbiology 09/22/18 20:03 Blood Blood Culture - Preliminary 09/22/18 20:09 Blood Blood Culture - Preliminary Gram Positive Cocci Narrative: She looks comfortable. Lungs remain clear. Heart is irregularly irregular. Abdomen is soft and nontender Assessment and Plan (1) Staphylococcus aureus bacteremia with sepsis Current visit: Yes Status: Acute Category: Medical Code(s): A41.01 - Sepsis due to Methicillin susceptible Staphylococcus aureus (2) Acute kidney injury Current visit: Yes Status: Acute Category: Medical Code(s): N17.9 - Acute kidney failure, unspecified (3) Gastroenteritis Current visit: Yes Status: Resolved Category: Medical Code(s): K52.9 - Noninfective gastroenteritis and colitis, unspecified (4) Dehydration Current visit: Yes Status: Resolved Category: Medical Code(s): E86.0 - Dehydration (5) Atrial fibrillation Current visit: Yes Status: Chronic Qualifiers: Atrial fibrillation type: chronic Qualified Code(s): I48.2 - Chronic atrial fibrillation Category: Medical Code(s): I48.91 - Unspecified atrial fibrillation (6) Anemia Current visit: Yes Status: Acute Category: Medical Code(s): D64.9 - Anemi a, unspecified (7) Fall at home Current visit: Yes Status: Acute Category: Medical Code(s): W19.XXXA - Unspecified fall, initial encounter; Y92.009 - Unspecified place in unspecified non-institutional (private) residence as the place of occurrence of the external cause - Assessment and plan all Dx Assessment and Plan for all problems:: Patient will undergo colonoscopy today. Vanco trough level has been ordered. Await finalization of blood cultures which appear to be growing staph aureus.
[2018-09-25 07:00] LABS: Anion Gap 7.6 mEq/L (5-15); Calcium 7.5 mg/dL (8.5-10.1)
--- NOTE | 2018-09-25 09:45 | Procedure Note ---
- Procedure: Date: 09/25/18 Procedure Performed:: Total colonoscopy with polypectomy Indications:: Patient is an 83-year-old white female who was admitted with diarrhea and dehydration. She was found to have diminishing hemoglobin and development of rectal bleeding. Surgical consultation was obtained. Yesterday she underwent upper endoscopy which was unremarkable. Plan was made for colonoscopy. She does have a prior history 10 years ago presumed diverticular bleed. Performing Provider:: Jovany Katz MD Referring Provider:: Houston Mohr MD Sedation:: Propofol Procedure:: Patient was taken to endoscopy procedure room. She was positioned in a lateral decubitus position. Adequate intravenous sedation was achieved with anesthesia titration of propofol. Variable stiffness Olympus colonoscope was inserted via the anus. With some difficulty due to atonic colon and floppiness of the colon it was ultimately advanced to the ascending colon. Colonic preparation was rat her poor. Thorough irrigation and suctioning was performed. The ileocecal valve was identified. Please note that the cecum could not be completely 100% visualized due to the inability to advance the colonoscope well into the cecum. Colonoscope was slowly withdrawn through the colon with careful surveillance. She had profound pandiverticulosis with large mouth diverticuli throughout with most pronounced diverticuli in the sigmoid colon. However, in the ascending colon and in the transverse colon there were a couple of diverticuli with impacted black stool possibly which could have previously bled. There was no evidence of any active bleeding with irrigation. She had several small polyps noted in the sigmoid, rectosigmoid colon we removed with cold cutting snare. Within the rectum retroflexion was performed which revealed internal hemorrhoids. She did have an anal rectal prominent polypoid lesion which may be merely anal papilla from prior prolapsing hemorrhoid. However this was easily removed with hot snare. Colonoscope was withdrawn Findings:: Profound pandiverticulosis Small polyps Possible anal papilla Poor preparation Recommendations:: Based on the clinical presentation, history, and colonoscopic findings this was likely a now resolved diverticular bleed. Plan to manage expectantly. Complications:: None immediate. Estimated blood obtained (mL): 2
[2018-09-25 12:42] LABS: Hematocrit 28.9 % (37.0-47.0)
--- NOTE | 2018-09-26 06:37 | Progress Note ---
Subjective Patient reports: no new complaints (She states that she noticed a small amount of blood with last bowel movement) Exam Vital signs and Labs for Last 24 Hours: Temp Pulse Resp BP Pulse Ox 98.3 F 79 17 115/48 L 95 09/26/18 04:00 09/26/18 04:00 09/26/18 04:00 09/26/18 04:00 09/26/18 04:00 Laboratory Results - last 24 hr 09/22/18 19:58: Urine Color Dk yellow, Urine Appearance Cloudy, Urine pH 5.0, Ur Specific [place] >= 1.030, Urine Protein 1+, Urine Glucose (UA) Negative, Urine Ketones Trace, Urine Blood Negative, Urine Nitrate Negative, Urine Bilirubin Negative, Urine Urobilinogen 0.2, Ur Leukocyte Esterase Negative, Urine WBC 3-5, Ur Squamous Epith Cells 5-10, Amorphous Sediment 2+, Hyaline Casts 5-10, Urine Mucus 2+ 09/23/18 18:40: Stool Occult Blood Positive A 09/25/18 05:50: Sodium 143, Potassium 3.6, Chloride 109 H, Carbon Dioxide 30, Anion Gap 7.6, BUN 20 H D, Creatinine 0.95 D, Estimated Creat Clear 62, Estimat ed GFR 56 L, Est GFR ( Amer) 68 D, Glucose 120 H, Calcium 7.5 L 09/25/18 12:30: Vancomycin Trough 3.9 L 09/25/18 12:30: Hgb 9.0 L, Hct 28.9 L I & O for Last 24 hours: Intake & Output 09/23/18 09/24/18 09/25/18 09/26/18 11:59 11:59 11:59 11:59 Intake Total 2295 / 2295 3193 / 3193 6136 / 6136 1312 / 1312 Output Total 1400 / 1400 350 / 350 Balance 2295 / 2295 1793 / 1793 5786 / 5786 1312 / 1312 Weight 199 lb 6.988 oz 204 lb 209 lb 9 oz 210 lb Microbiology Reports for the Last 24 Hours: Microbiology 09/22/18 20:03 Blood Blood Culture - Preliminary Gram Positive Cocci Gram Negative Rods 09/22/18 20:09 Blood Blood Culture - Final Staph hominis ssp hominis - Constitutional no acute distress - *Routine Abdominal Exam Present: soft Progress Note: A&P (1) Staphylococcus aureus bacteremia with sepsis Status: Acute Current Visit: Yes (2) Acute kidney injury Status: Acute Current Visit: Yes (3) Gastroenteritis Status: Resolved Current Visit: Yes (4) Dehydration Status: Resolved Current Visit: Yes (5) Atrial fibrillation Status: Chronic Current Visit: Yes (6) Anemia Status: Acute Current Visit: Yes (7) Fall at home Status: Acute Current Visit: Yes (8) Diverticular hemorrhage Status: Acute Assessment and plan: No definitive sign of ongoing blood loss Follow-up morning labs Current Visit: Yes
[2018-09-26 07:00] LABS: Anion Gap 8.4 mEq/L (5-15); Calcium 7.8 mg/dL (8.5-10.1)
--- NOTE | 2018-09-26 07:10 | Progress Note ---
Internal Medicine - PN: Subj *Date: 09/26/18 *Time: 07:06 Interval history: Patient has no complaints this morning. She underwent colonoscopy yesterday which revealed pandiverticulosis but no identified bleed. Patient reports since her colonoscopy she has had an additional bowel movement which had a small amount of dark blood in it. She denies lightheadedness or shortness of breath. She remains afebrile Exam Vital signs and Labs for Last 24 Hours: Temp Pulse Resp BP Pulse Ox 98.3 F 79 17 115/48 L 95 09/26/18 04:00 09/26/18 04:00 09/26/18 04:00 09/26/18 04:00 09/26/18 04:00 Laboratory Results - last 24 hr 09/22/18 19:58: Urine Color Dk yellow, Urine Appearance Cloudy, Urine pH 5.0, Ur Specific [place] >= 1.030, Urine Protein 1+, Urine Glucose (UA) Negative, Urine Ketones Trace, Urine Blood Negative, Urine Nitrate Negative, Urine Bilirubin Negative, Urine Urobilinogen 0.2, Ur Leukocyte Esterase Negative, Urine WBC 3-5, Ur Squamous Epith Cells 5-10, Amorphous Sediment 2+, Hyaline Casts 5-10, Urine Mucus 2+ 09/23/18 18:40: Stool Occult Blood Positive A 09/25/18 05:50: Sodium 143, Potassium 3.6, Chloride 109 H, Carbon Dioxide 30, Anion Gap 7.6, BUN 20 H D, Creatinine 0.95 D, Estimated Creat Clear 62, Estimated GFR 56 L, Est GFR ( Amer) 68 D, Glucose 120 H, Calcium 7.5 L 09/25/18 12:30: Vancomycin Trough 3.9 L 09/25/18 12:30: Hgb 9.0 L, Hct 28.9 L I & O for Last 24 hours: Intake & Output 09/23/18 09/24/18 09/25/18 09/26/18 11:59 11:59 11:59 11:59 Intake Total 2295 / 2295 3193 / 3193 6136 / 6136 1312 / 1312 Output Total 1400 / 1400 350 / 350 Balance 2295 / 2295 1793 / 1793 5786 / 5786 1312 / 1312 Weight 199 lb 6.988 oz 204 lb 209 lb 9 oz 210 lb Microbiology Reports for the Last 24 Hours: Microbiology 09/22/18 20:03 Blood Blood Culture - Preliminary Gram Positive Cocci Gram Negative Rods 09/22/18 20:09 Blood Blood Culture - Final Staph hominis ssp hominis Narrative: She is awake and alert. She appears comfortable. Lungs are clear to auscultation. Heart has an irregular rate and rhythm. Abdomen is soft and nontender Assessment and Plan (1) Acute kidney injury Current visit: Yes Status: Resolved Category: Medical Code(s): N17.9 - Acute kidney failure, unspecified (2) Diverticular hemorrhage Current visit: Yes Status: Resolved Category: Medical Code(s): K57.31 - Diverticulosis of large intestine without perforation or abscess with bleeding (3) Staphylococcus aureus bacteremia with sepsis Current visit: Yes Status: Suspected Category: Medical Code(s): A41.01 - Sepsis due to Methicillin susceptible Staphylococcus aureus (4) Gastroenteritis Current visit: Yes Status: Resolved Category: Medical Code(s): K52.9 - Noninfective gastroenteritis and colitis, unspecified (5) Dehydration Current visit: Yes Status: Resolved Category: Medical Code(s): E86.0 - Dehydration (6) Atrial fibrillation Current visit: Yes Status: Chronic Qualifiers: Atrial fibrillation type: chronic Qualified Code(s): I48.2 - Chronic atrial fibrillation Category: Medical Code(s): I48.91 - Unspecified atrial fibrillation (7) Anemia Current visit: Yes Status: Acute Category: Medical Code(s): D64.9 - Anemia, unspecified (8) Fall at home Current visit: Yes Status: Acute Category: Medical Code(s): W19.XXXA - Unspecified fall, initial encounter; Y92.009 - Unspecified place in unspecified non-institutional (private) residence as the place of occurrence of the external cause - Assessment and plan all Dx Assessment and Plan for all problems:: 1. Await blood cultures. At this time there are 3 separate organisms growing from the blood cultures which would indicate contamination. Finalization of blood cultures is expected tomorrow. Patient has been on vancomycin since Sunday due to the suspected staph species. Patient has remained afebrile throughout the hospitalization. 2. Patient experienced multiple falls at home even prior to the admission. PT evaluated the patient and she is appropriate for short-term rehab by their assessment. Ideally patient could be transferred to a senior living facility tomorrow to continue some physical therapy. 3. Follow H&H. 4. Acute kidney injury has resolved and patient's creatinine is back to baseline
[2018-09-26 07:43] LABS: Basophils % 0.2 % (0.1-2.0); Eosinophils # 0.1 K/mm3 (0.0-0.4); Eosinophils % 1.1 % (0.1-12.0); Hematocrit 27.7 % (37.0-47.0); Hemoglobin 8.3 g/dL (12.2-16.2); Lymphocytes # 2.2 K/mm3 (0.7-4.5); Lymphocytes % 27.8 % (10-50); Mean Corpuscular HGB Conc 30.2 g/dL (31.8-35.4); Mean Corpuscular Volume 98.6 fl (81-99); Mean Platelet Volume 7.8 fl (7.4-10.4); Monocytes # 0.5 K/mm3 (0.1-1.0); Monocytes % 6.2 % (1.7-9.3); Neutrophils # 5.2 K/mm3 (1.8-7.8); Neutrophils % 64.7 % (37.0-80.0); Platelet Count 217 K/mm3 (142-424); Red Cell Distribution Width 18.6 % (11.5-17.5)
--- NOTE | 2018-09-26 09:15 | Pharmacy Consult Notes ---
- Pharmacy Consult Date: 09/25/18 Time: 14:00 Referring provider: DR. HUA Reason for Consult:: VANCOMYCIN TROUGH LEVEL Allergies and ADEs:: Allergies Allergy/AdvReac Type Severity Reaction Status Date / Time No Known Allergies Allergy Verified 09/22/18 17:03 Home Medications:: Home Medications Medication Instructions Recorded Confirmed Type Aspirin [Aspirin EC 325mg Tab] 325 mg PO DAILY 09/23/18 09/23/18 History Chlorthalidone 25 mg PO DAILY 09/23/18 09/23/18 History Ferrous Sulfate [Ferrous Sulfate 325 mg PO DAILY 09/23/18 09/23/18 History 325mg Tablet] Verapamil HCl [Verapamil ER] 120 mg PO HS 09/23/18 09/23/18 History Verapamil HCl [Verapamil ER] 240 mg PO DAILY 09/23/18 09/23/18 History Height: 1.57 m Weight: 95.254 kg Laboratory Results:: Laboratory Results - last 24 hr 09/22/18 19:58: Urine Color Dk yellow, Urine Appearance Cloudy, Urine pH 5.0, Ur Specific [place] >= 1.030, Urine Protein 1+, Urine Glucose (UA) Negative, Urine Ketones Trace, Urine Blood Negative, Urine Nitrate Negative, Urine Bilirubin Negative, Urine Urobilinogen 0.2, Ur Leukocyte Esterase Negative, Urine WBC 3-5, Ur Squamous Epith Cells 5-10, Amorphous Sediment 2+, Hyaline Casts 5-10, Urine Mucus 2+ 09/23/18 18:40: Stool Occult Blood Positive A 09/25/18 12:30: Vancomycin Trough 3.9 L 09/25/18 12:30: Hgb 9.0 L, Hct 28.9 L 09/26/18 05:55: WBC 8.0, RBC 2.80 L, Hgb 8.3 L, Hct 27.7 L, MCV 98.6, MCH 29.7, MCHC 30.2 L, RDW 18.6 H, Plt Count 217, MPV 7.8, Neut % (Auto) 64.7, Lymph % (Auto) 27.8, [place] % (Auto) 6.2, Eos % (Auto) 1.1, Baso % (Auto) 0.2, Neut # (Auto) 5.2, Lymph # (Auto) 2.2, [place] # (Auto) 0.5, Eos # (Auto) 0.1, Baso # (Auto) 0.0 09/26/18 05:55: Sodium 143, Potassium 3.4 L, Chloride 107, Carbon Dioxide 31, Anion Gap 8.4, BUN 13 D, Creatinine 0.94, Estimated Creat Clear 62, Estimated GFR 57 L, Est GFR ( Amer) 68, Glucose 101, Calcium 7.8 L Medical History: Reports:: Atrial Fibrillation, Hypertension Assessment and Plan (1) Acute kidney injury Current visit: Yes Status: Resolved Category: Medical Code(s): N17.9 - Acute kidney failure, unspecified (2) Diverticular hemorrhage Current visit: Yes Status: Resolved Category: Medical Code(s): K57.31 - Diverticulosis of large intestine without perforation or abscess with bleeding (3) Staphylococcus aureus bacteremia with sepsis Current visit: Yes Status: Suspected Category: Medical Code(s): A41.01 - Sepsis due to Methicillin susceptible Staphylococcus aureus (4) Gastroenteritis Current visit: Yes Status: Resolved Category: Medical Code(s): K52.9 - Noninfective gastroenteritis and colitis, unspecified (5) Dehydration Current visit: Yes Status: Resolved Category: Medical Code(s): E86.0 - Dehydration (6) Atrial fibrillation Current visit: Yes Status: Chronic Qualifiers: Atrial fibrillation type: chronic Qualified Code(s): I48.2 - Chronic atrial fibrillation Category: Medical Code(s): I48.91 - Unspecified atrial fibrillation (7) Anemia Current visit: Yes Status: Acute Category: Medical Code(s): D64.9 - Anemia, unspecified (8) Fall at home Current visit: Yes Status: Acute Category: Medical Code(s): W19.XXXA - Unspecified fall, initial encounter; Y92.009 - Unspecified place in unspecified non-institutional (private) residence as the place of occurrence of the external cause - Assessment and plan all Dx Assessment and Plan for all problems:: BASED ON PATIENT FACTORS AND VANCOMYCIN TROUGH LEVEL OF 3.9 AFTER ONE DOSE, RECOMMEND CONTINUING VANCOMYCIN 1,750MG DAILY. WILL OBTAIN TROUGH LEVEL 09/27/18 AT 1330. PATIENT'S RENAL FUNCTION HAS RETURNED TO BASELINE SINCE ADMISSION. PHARMACY WILL CONTINUE TO MONITOR AND ADJUST DOSE APPROPRIATE. -EROS FIGUEREDO PHARMD
[2018-09-26 14:11] LABS: Hemoglobin 8.4 g/dL (12.2-16.2)
[2018-09-27 06:42] LABS: Basophils % 0.4 % (0.1-2.0); Eosinophils # 0.2 K/mm3 (0.0-0.4); Eosinophils % 1.6 % (0.1-12.0); Hematocrit 27.3 % (37.0-47.0); Hemoglobin 8.5 g/dL (12.2-16.2); Lymphocytes # 3.1 K/mm3 (0.7-4.5); Lymphocytes % 30.3 % (10-50); Mean Corpuscular HGB Conc 31.2 g/dL (31.8-35.4); Mean Corpuscular Volume 92.7 fl (81-99); Mean Platelet Volume 7.2 fl (7.4-10.4); Monocytes # 0.6 K/mm3 (0.1-1.0); Monocytes % 5.6 % (1.7-9.3); Neutrophils # 6.4 K/mm3 (1.8-7.8); Platelet Count 238 K/mm3 (142-424); Red Blood Count 2.94 M/mm3 (4.20-5.40); Red Cell Distribution Width 18.5 % (11.5-17.5); White Blood Count 10.3 K/mm3 (4.8-10.8)
[2018-09-27 06:52] LABS: Anion Gap 8.8 mEq/L (5-15); Calcium 8.2 mg/dL (8.5-10.1)
--- NOTE | 2018-09-27 06:52 | Progress Note ---
Internal Medicine - PN: Subj *Date: 09/27/18 *Time: 07:07 Interval history: Patient has no complaints this morning. She had another bowel movement overnight but there was no identifiable blood. She denies abdominal pain. Her appetite is "okay". Exam Vital signs and Labs for Last 24 Hours: Temp Pulse Resp BP Pulse Ox 98.5 F 69 18 105/49 L 92 L 09/27/18 04:00 09/27/18 04:00 09/27/18 04:00 09/27/18 04:00 09/27/18 04:00 Laboratory Results - last 24 hr 09/22/18 19:58: Urine Color Dk yellow, Urine Appearance Cloudy, Urine pH 5.0, Ur Specific [place] >= 1.030, Urine Protein 1+, Urine Glucose (UA) Negative, Urine Ketones Trace, Urine Blood Negative, Urine Nitrate Negative, Urine Bilirubin Negative, Urine Urobilinogen 0.2, Ur Leukocyte Esterase Negative, Urine WBC 3-5, Ur Squamous Epith Cells 5-10, Amorphous Sediment 2+, Hyaline Casts 5-10, Urine Mucus 2+ 09/26/18 05:55: WBC 8.0, RBC 2.80 L, Hgb 8.3 L, Hct 27.7 L, MCV 98.6, MCH 29.7, MCHC 30.2 L, RDW 18.6 H, Plt Count 217, MPV 7.8, Neut % (Auto) 64.7, Lymph % (Auto) 27.8, [place] % (Auto) 6.2, Eos % (Auto) 1.1, Baso % (Auto) 0.2, Neut # (Auto) 5.2, Lymph # (Auto) 2.2, [place] # (Auto) 0.5, Eos # (Auto) 0.1, Baso # (Auto) 0.0 09/26/18 05:55: Sodium 143, Potassium 3.4 L, Chloride 107, Carbon Dioxide 31, Anion Gap 8.4, BUN 13 D, Creatinine 0.94, Estimated Creat Clear 62, Estimated GFR 57 L, Est GFR ( Amer) 68, Glucose 101, Calcium 7.8 L 09/26/18 13:58: Hgb 8.4 L, Hct 26.0 L I & O for Last 24 hours: Intake & Output 07/0909/25/18 09/26/18 09/27/18 11:59 11:59 11:59 11:59 Intake Total 3193 / 3193 6136 / 6136 1732 / 1732 780 / 780 Output Total 1400 / 1400 350 / 350 300 / 300 Balance 1793 / 1793 5786 / 5786 1732 / 1732 480 / 480 Weight 204 lb 209 lb 9 oz 210 lb 209 lb 10 oz Microbiology Reports for the Last 24 Hours: Microbiology 09/22/18 20:03 Blood Blood Culture - Preliminary Staphylococcus epidermidis Gram Negative Rods Gram Positive Cocci Narrative: She is awake and alert sitting up comfortably in bed. Oropharynx is moist. Heart has an irregularly irregular rhythm. Lungs are clear. Abdomen is soft and nontender Assessment and Plan (1) Acute kidney injury Current visit: Yes Status: Resolved Category: Medical Code(s): N17.9 - Acute kidney failure, unspecified (2) Diverticular hemorrhage Current visit: Yes Status: Resolved Category: Medical Code(s): K57.31 - Diverticulosis of large intestine without perforation or abscess with bleeding (3) Staphylococcus aureus bacteremia with sepsis Current visit: Yes Status: Suspected Category: Medical Code(s): A41.01 - Sepsis due to Methicillin susceptible Staphylococcus aureus (4) Gastroenteritis Current visit: Yes Status: Resolved Category: Medical Code(s): K52.9 - Noninfective gastroenteritis and colitis, unspecified (5) Dehydration Current visit: Yes Status: Resolved Category: Medical Code(s): E86.0 - Dehydration (6) Atrial fibrillation Current visit: Yes Status: Chronic Qualifiers: Atrial fibrillation type: chronic Qualified Code(s): I48.2 - Chronic atrial fibrillation Category: Medical Code(s): I48.91 - Unspecified atrial fibrillation (7) Anemia Current visit: Yes Status: Acute Category: Medical Code(s): D64.9 - Anemia, unspecified (8) Fall at home Current visit: Yes Status: Acute Category: Medical Code(s): W19.XXXA - Unspecified fall, initial encounter; Y92.009 - Unspecified place in unspecified non-institutional (private) residence as the place of occurrence of the external cause - Assessment and plan all Dx Assessment and Plan for all problems:: 1. Await CBC this morning, anticipate discharge if anemia is stable 2. Patient's blood cultures are growing multiple organism which is highly suggestive of contamination. Antibiotics will be discontinued. Patient will not need antibiotics at discharge 3. Home health will be arranged discharged for physical therapy, home safety, vital signs monitoring
--- NOTE | 2018-09-27 07:02 | Discharge Summary ---
General - General Admission date:: 09/24/18 Discharge date: 09/27/18 HPI HPI: 83-year-old female presented to the emergency department yesterday afternoon with complaints of "feeling sick". Patient reports early Sunday morning she was awoken from sleep with onset of diarrhea. She estimates she had at least 6 large-volume watery bowel movements and associated episodes of vomiting. She is unaware of any fevers. She reports that she passed out at least twice during the early onset of this illness. She ultimately made her way to the emergency department in the afternoon. On evaluation in the ER the patient appeared dehydrated, had a elevated white blood cell count and had acute kidney injury on her BMP. Decision was made to admit the patient for IV fluids and antiemetics. Patient has not had any episodes of vomiting or diarrhea since admission. She recalls her last meal being some grape tomatoes and cheddar cheese on crackers. Hospital Course Hospital Course: Patient was admitted for treatment of her acute kidney injury with IV fluids. After being appropriately rehydrated over a 3-day. Patient's creatinine returned to below baseline. Baseline creatinine is around 1.2 but in the hospi olga it dropped to 0.9. The diarrhea the patient presented with on admission resolved but within 24 hours of admission patient began passing blood in her stools. Blood was somewhat mixed being both black and tarry as well as maroon. Surgery service was consulted. On September 24 patient underwent EGD by Dr. Katz without findings of active bleeding. Patient was given a bowel prep on the and on September 25 underwent a colonoscopy. While the bowel prep was not poor it was enough to see pandiverticulosis of the colon but no active bleeding. Patient was diagnosed with a diverticular hemorrhage. She did have significant drop in her hemoglobin down to 6.9. She was transfused 2 units of packed red blood cells on September 24. Patient's H&H remained stable after transfusion. Patient takes aspirin at home for her atrial fibrillation and this was held while the patient was hospitalized. At discharge the patient was advised to continue to hold aspirin until given further directions. While patient never had any fevers or chills her blood cultures turned positive early in the admission. MECA gene was detected on both her aerobic and anaerobic blood culture suggestive of a staphylococcal organism. Patient was started on IV vancomycin to cover the possibility of MRSA. Echocardiogram was ordered which did not reveal any significant valvular abnormalities. On September 26 her aerobic blood culture had returned with staph hominis. Anaerobic blood culture was still unavailable. By September 27 her anaerobic culture was growing staph epidermidis along with multiple other organisms suggestive of contamination. Vancomycin was discontinued on September 26. Patient did not develop any fevers or chills. Her blood cultures were considered contaminants. She will not need antibiotics at discharge. Patient has known atrial fibrillation for which she takes diltiazem for rate control and aspirin. Patient will stop her aspirin due to GI bleeding. Patient's had multiple falls at home even prior to her illness. Because of concerns for home safety physical therapy was consulted Patient was deemed appropriate for short-term rehab by physical therapy assessment on September 25. Care management was consulted to aid in finding placement for the patient. As hospitalization prolonged patient's mobility improved. She was deemed appropriate for discharge to home Objective Vital signs: Temp Pulse Resp BP Pulse Ox 98.5 F 69 18 105/49 L 92 L 09/27/18 04:00 09/27/18 04:00 09/27/18 04:00 09/27/18 04:00 09/27/18 04:00 Results Labs on day of discharge: Labs from last 24 hours 09/26/18 09/26/18 09/26/18 13:58 05:55 05:55 WBC 8.0 RBC 2.80 L Hgb 8.4 L 8.3 L Hct 26.0 L 27.7 L MCV 98.6 MCH 29.7 MCHC 30.2 L RDW 18.6 H Plt Count 217 MPV 7.8 Neut % (Auto) 64.7 Lymph % (Auto) 27.8 [place] % (Auto) 6.2 Eos % (Auto) 1.1 Baso % (Auto) 0.2 Neut # (Auto) 5.2 Lymph # (Auto) 2.2 [place] # (Auto) 0.5 Eos # (Auto) 0.1 Baso # (Auto) 0.0 Sodium 143 Potassium 3.4 L Chloride 107 Carbon Dioxide 31 Anion Gap 8.4 BUN 13 D Creatinine 0.94 Estimated Creat Clear 62 Estimated GFR 57 L Est GFR ( Amer) 68 Glucose 101 Calcium 7.8 L Urine Color Urine Appearance Urine pH Ur Specific [place] Urine Protein Urine Glucose (UA) Urine Ketones Urine Blood Urine Nitrate Urine Bilirubin Urine Urobilinogen Ur Leukocyte Esterase Urine WBC Ur Squamous Epith Cells Amorphous Sediment Hyaline Casts Urine Mucus 09/22/18 19:58 WBC RBC Hgb Hct MCV MCH MCHC RDW Plt Count MPV Neut % (Auto) Lymph % (Auto) [place] % (Auto) Eos % (Auto) Baso % (Auto) Neut # (Auto) Lymph # (Auto) [place] # (Auto) Eos # (Auto) Baso # (Auto) Sodium Potassium Chloride Carbon Dioxide Anion Gap BUN Creatinine Estimated Creat Clear Estimated GFR Est GFR ( Amer) Glucose Calcium Urine Color Dk yellow Urine Appearance Cloudy Urine pH 5.0 Ur Specific [place] >= 1.030 Urine Protein 1+ Urine Glucose (UA) Negative Urine Ketones Trace Urine Blood Negative Urine Nitrate Negative Urine Bilirubin Negative Urine Urobilinogen 0.2 Ur Leukocyte Esterase Negative Urine WBC 3-5 Ur Squamous Epith Cells 5-10 Amorphous Sediment 2+ Hyaline Casts 5-10 Urine Mucus 2+ Preliminary micro results at discharge 09/22/18 20:03 Blood Culture - Preliminary Blood Staphylococcus epidermidis Gram Negative Rods Gram Positive Cocci DS: Diagnosis - Discharge Diagnosis (1) Acute kidney injury Status: Resolved (2) Diverticular hemorrhage Status: Resolved (3) Staphylococcus aureus bacteremia with sepsis Status: Suspected (4) Gastroenteritis Status: Resolved (5) Dehydration Status: Resolved (6) Atrial fibrillation Status: Chronic (7) Anemia Status: Acute (8) Fall at home Status: Acute Discharge Plan - Patient Discharge Instructions ACTIVITY: Continue current activity DIET: continue same diet Patient Instructions: Dehydration, Acute Renal Failure, How to Prevent Falls - Follow up Plan Follow up with: Houston Mohr MD [Staff Physician] - 10/04/18 10:00 am Home Medications: Home Medications Medication Instructions Recorded Confirmed Type Aspirin [Aspirin EC 325mg Tab] 325 mg PO DAILY 09/23/18 09/23/18 History Chlorthalidone 25 mg PO DAILY 09/23/18 09/23/18 History Ferrous Sulfate [Ferrous Sulfate 325 mg PO DAILY 09/23/18 09/23/18 History 325mg Tablet] Verapamil HCl [Verapamil ER] 120 mg PO HS 09/23/18 09/23/18 History Verapamil HCl [Verapamil ER] 240 mg PO DAILY 09/23/18 09/23/18 History Prescriptions/Medication Reconciliation: Continued Ferrous Sulfate [Ferrous Sulfate 325mg Tablet] 325 mg PO DAILY Verapamil HCl [Verapamil ER] 240 mg PO DAILY Verapamil HCl [Verapamil ER] 120 mg PO HS Discontinued Aspirin [Aspirin EC 325mg Tab] 325 mg PO DAILY Chlorthalidone 25 mg PO DAILY
== END 2018-09-27 19:27 | disposition home or self-care (01) | DRG 682 ==
LOC: ER 16:46 → 2ND 16:46
PROVIDERS: ADMIT Emergency Medicine; ATTEND Family Medicine
CPT/HCPCS: 36415; 74021; 74022; 80048; 80053; 80202; 81001; 82272; 83605; 83735; 85007; 85014; 85018; 85025; 86850; 87040; 87077; 87186; 87507; 88305; 93005; 93306; 96365; 96375; 97110; 97116; 97161; 99285; G0328; G0378; J2405; J3370; P9016